=== PATIENT | female | born 1960 | race Caucasian/White ===

== ENCOUNTER 2024-04-12 18:48 | Inpatient (IN) ==
[2024-04-12] MEDS: fentaNYL 100 mcg/2 ml 50 MCG/ML VIAL IV SLOW PU ONE (19:30)
[2024-04-12 20:22] LABS: ABS Basophils 0.1 10^3/uL (0.0-0.1); ABS Eosinophils 0.1 10^3/uL (0.0-0.5); ABS Lymphocytes 1.4 10^3/uL (1.0-4.8); ABS Monocytes 0.6 10^3/uL (0.0-0.9); ABS Neutrophils 11.6 10^3/uL (1.5-7.6); Eosinophil % 0.4 %; Hematocrit 39.7 % (35-45); Hemoglobin 13.5 g/dL (11.5-14.3); Mean Corpuscular Hemoglobin 29.3 pg (27-33); Mean Corpuscular Volume 86.4 fL (80-97); Mean Platelet Volume 8.7 fL (7.5-11.2); Platelet Count 271 10^3/uL (150-450); Red Blood Count 4.59 10^6/uL (3.63-4.92); Red Cell Distribution Width 14.1 % (12-17); White Blood Count 13.7 10^3/uL (3.8-11.8)
[2024-04-12 20:46] LABS: ALT 32 U/L (7-52); AST 30 U/L (13-39); Albumin 4.3 g/dL (3.2-5.2); Albumin/Globulin Ratio 1.6 (1-3); Alkaline Phosphatase 120 U/L (35-149); Anion Gap 14 mmol/L (2-16); Blood Urea Nitrogen 19 mg/dL (6-24); C Reactive Protein 18.37 mg/L (<8.01); CO2 Carbon Dioxide 25 mmol/L (22-32); Calcium 9.6 mg/dL (8.6-10.3); Chloride 101 mmol/L (101-111); Creatinine, Serum 1.12 mg/dL (0.51-0.95); Globulin 2.7 g/dL (2-4); Glucose 226 mg/dL (70-100); Lipase < 10 U/L (11.0-82.0); Potassium 4.2 mmol/L (3.5-5.0); Sodium 140 mmol/L (135-145); Total Bilirubin 0.6 mg/dL (0.2-1.0); eGFR CKD-EPI 55.3 (>60)
[2024-04-12] MEDS: Iodixanol (CONTRAST) 320 MG/ML 100 ML SDV IV ONE (21:55)
[2024-04-12] MEDS: Morphine 4 MG/ML VIAL (1 ml) IV ONE (23:03)
[2024-04-12] MEDS ORDERED: Propofol 10 MG/ML 20 ML BTL ONE (23:40)
[2024-04-12] MEDS ORDERED: Lidocaine 2% PF 5 ML VIAL ONE (23:40)
[2024-04-12] MEDS ORDERED: Dexamethasone IV 4 MG/ML VIAL 1 ml VIAL ONE (23:40)
[2024-04-12] MEDS ORDERED: Ondansetron 4 mg VIAL 2 MG/ML 2 ml VIAL ONE (23:40)
[2024-04-12] MEDS ORDERED: fentaNYL 100 mcg/2 ml 50 MCG/ML VIAL ONE (23:41)
[2024-04-12] MEDS ORDERED: Phenylephrine 40 mcg/mL 10mL (400mcg) SYRINGE ONE (23:41)
[2024-04-12] MEDS ORDERED: Midazolam 2 mg/2 ml VIAL 1 mg/ml 2 ml VIAL (2 mg) ONE (23:41)
[2024-04-12] MEDS ORDERED: Rocuronium 50 mg VIAL 10 mg/ml 5 ml VIAL (50 mg) ONE (23:41)
[2024-04-13] MEDS: Piperacillin/Tazobac 3.375 BAG 3.375 GM/100 ML BAG IV ONE
[2024-04-13] MEDS ORDERED: Naloxone 0.4 mg VIAL 0.4 mg/ml 1 ml VIAL IV PRN (00:05)
[2024-04-13] MEDS ORDERED: Ondansetron 4 mg VIAL 2 MG/ML 2 ml VIAL IV PRN (00:05)
[2024-04-13] MEDS ORDERED: fentaNYL 100 mcg/2 ml 50 MCG/ML VIAL IV PRN (00:05)
[2024-04-13] MEDS ORDERED: Scopolamine 1 mg/72hr PATCH TRANSDERM ONE (00:05)
[2024-04-13] MEDS ORDERED: Famotidine IV 10 MG/ML 2 ml VIAL (20 mg) ONE (00:20)
[2024-04-13] MEDS ORDERED: Heparin 5000 UNITS/ML 1 mL VIAL ONE (00:26)
[2024-04-13] MEDS ORDERED: NS 0.45% 1000 ml BAG 1,000 ML IV SCH (01:00)
[2024-04-13] MEDS ORDERED: Acetaminophen IV 1 GM/100ML 1,000 MG/100 ML BAG IV ONE (01:06)
[2024-04-13] MEDS ORDERED: Rocuronium 50 mg VIAL 10 mg/ml 5 ml VIAL (50 mg) ONE (01:21)
[2024-04-13] MEDS ORDERED: HYDROmorphone 0.5 MG/0.5 ML SYRINGE ONE (02:32)
[2024-04-13] MEDS ORDERED: hydrALAZINE 20 mg/ml 1 ML Vial IV ONE (02:49)
[2024-04-13] MEDS: HYDROmorphone 1 MG/1 ML SYRINGE IV SLOW PU PRN (04:10)
[2024-04-13] MEDS: Lactated Ringers 1000 ml BAG 1,000 ML IV SCH ×2 (04:13→08:12)
[2024-04-13 05:21] LABS: Activated Partial Thrombo Time 25.9 seconds (26.0-38.0); INR 1.04 (0.83-1.13)
[2024-04-13 05:33] LABS: Creatinine, Serum 0.97 mg/dL (0.51-0.95); eGFR CKD-EPI 65.7 (>60)
[2024-04-13 05:43] LABS: ABS Lymphocytes 0.7 10^3/uL (1.0-4.8); ABS Monocytes 0.4 10^3/uL (0.0-0.9); ABS Neutrophils 11.8 10^3/uL (1.5-7.6); ABS Nucleated RBC 0.03 10^3/ul; Hematocrit 37.9 % (35-45); Hemoglobin 12.7 g/dL (11.5-14.3); Lymphocyte % 5.1 %; Mean Corpuscular Hemoglobin 29.3 pg (27-33); Mean Corpuscular Hgb Conc 33.6 g/dL (31-36); Mean Corpuscular Volume 87.3 fL (80-97); Mean Platelet Volume 8.7 fL (7.5-11.2); Nucleated Red Blood Cells % 0.2 %/100WBC (0.0-0.8); Platelet Count 231 10^3/uL (150-450); Red Blood Count 4.35 10^6/uL (3.63-4.92); Red Cell Distribution Width 14.6 % (12-17); White Blood Count 12.8 10^3/uL (3.8-11.8)
[2024-04-13] MEDS: Heparin 5000 UNITS/ML 1 mL VIAL SUBCUT SCH (07:28)
[2024-04-13] MEDS: Acetaminophen IV 1 GM/100ML 1,000 MG/100 ML BAG IV ONE (08:11)
[2024-04-13] MEDS: Ondansetron 4 mg VIAL 2 MG/ML 2 ml VIAL IV ONE (08:11)
[2024-04-13] MEDS: Buffered Lidocaine 1% SYRIN 1 ml INTRADERM ONE (08:12)
[2024-04-13 12:33] LABS: HIV 4th Generation Nonreactive (Nonreactive)
[2024-04-13 12:41] LABS: Hepatitis C Antibody Negative (Negative)
[2024-04-13] MEDS ORDERED: Albuterol HFA INHALER 8 gm MDI INH PRN (13:38)
[2024-04-13] MEDS ORDERED: Dextrose 50% Syringe 50 ml 25 GM/50 ML SYRINGE IV PUSH PRN (13:39)
[2024-04-13] MEDS: Acetaminophen IV 1 GM/100ML 1,000 MG/100 ML BAG IV PRN (14:00)
[2024-04-13 14:24] LABS: TSH Ultra Thyroid Stim Horm 0.64 mcIU/mL (0.34-5.60)
[2024-04-13 14:29] LABS: Free T4 1.16 ng/dL (0.61-1.12)
[2024-04-13] MEDS: COVID VAC 23-24(12+)(Moderna) SYR 0.5 ML IM ONE (15:01)
[2024-04-14] MEDS ORDERED: HYDROmorphone 1 MG/1 ML SYRINGE IV SLOW PU PRN (10:45)
[2024-04-14] MEDS: Lactated Ringers 1000 ml BAG 1,000 ML IV SCH (11:47)
[2024-04-14 12:23] LABS: Calcium 8.2 mg/dL (8.6-10.3); Creatinine, Serum 0.91 mg/dL (0.51-0.95); Potassium 4.1 mmol/L (3.5-5.0); eGFR CKD-EPI 70.9 (>60)
[2024-04-14 21:14] LABS: Folate 9.77 ng/mL (5.90-24.80)
[2024-04-14 23:45] LABS: ABS Basophils 0.1 10^3/uL (0.0-0.1); ABS Eosinophils 0.1 10^3/uL (0.0-0.5); ABS Lymphocytes 1.1 10^3/uL (1.0-4.8); ABS Monocytes 0.7 10^3/uL (0.0-0.9); ABS Neutrophils 5.8 10^3/uL (1.5-7.6); Eosinophil % 0.9 %; Hematocrit 31.8 % (35-45); Hemoglobin 10.7 g/dL (11.5-14.3); Lymphocyte % 14.3 %; Mean Corpuscular Hemoglobin 29.4 pg (27-33); Mean Corpuscular Hgb Conc 33.6 g/dL (31-36); Mean Corpuscular Volume 87.5 fL (80-97); Mean Platelet Volume 8.1 fL (7.5-11.2); Nucleated Red Blood Cells % 0.1 %/100WBC (0.0-0.8); Platelet Count 207 10^3/uL (150-450); Red Blood Count 3.64 10^6/uL (3.63-4.92); Red Cell Distribution Width 14.2 % (12-17); White Blood Count 7.6 10^3/uL (3.8-11.8)
[2024-04-15 08:33] LABS: ABS Basophils 0.1 10^3/uL (0.0-0.1); ABS Eosinophils 0.1 10^3/uL (0.0-0.5); ABS Lymphocytes 0.9 10^3/uL (1.0-4.8); ABS Monocytes 0.7 10^3/uL (0.0-0.9); ABS Neutrophils 6.5 10^3/uL (1.5-7.6); Eosinophil % 1.2 %; Hematocrit 30.7 % (35-45); Hemoglobin 10.8 g/dL (11.5-14.3); Lymphocyte % 10.7 %; Mean Corpuscular Hemoglobin 30.8 pg (27-33); Mean Corpuscular Hgb Conc 35.1 g/dL (31-36); Mean Corpuscular Volume 87.8 fL (80-97); Mean Platelet Volume 8.2 fL (7.5-11.2); Platelet Count 200 10^3/uL (150-450); Red Cell Distribution Width 14.1 % (12-17); White Blood Count 8.2 10^3/uL (3.8-11.8)
[2024-04-15] MEDS ORDERED: KCL 20 MEQ/100 ML IVPREMIX 20 MEQ/100 ML BAG IV ONE (08:55)
[2024-04-15 09:08] LABS: Calcium 8.2 mg/dL (8.6-10.3); Creatinine, Serum 0.99 mg/dL (0.51-0.95); Magnesium 1.5 mg/dL (1.9-2.7); Potassium 3.5 mmol/L (3.5-5.0); eGFR CKD-EPI 64.1 (>60)
[2024-04-15] MEDS: Ondansetron 4 mg VIAL 2 MG/ML 2 ml VIAL IV PRN (10:06)
[2024-04-16 07:30] LABS: ABS Eosinophils 0.3 10^3/uL (0.0-0.5); ABS Lymphocytes 1.2 10^3/uL (1.0-4.8); ABS Monocytes 0.6 10^3/uL (0.0-0.9); ABS Neutrophils 6.8 10^3/uL (1.5-7.6); Eosinophil % 2.9 %; Hematocrit 29.7 % (35-45); Hemoglobin 10.4 g/dL (11.5-14.3); Mean Corpuscular Hemoglobin 30.5 pg (27-33); Mean Corpuscular Hgb Conc 34.8 g/dL (31-36); Mean Corpuscular Volume 87.6 fL (80-97); Mean Platelet Volume 8.1 fL (7.5-11.2); Platelet Count 196 10^3/uL (150-450); Red Blood Count 3.39 10^6/uL (3.63-4.92); White Blood Count 8.8 10^3/uL (3.8-11.8)
[2024-04-16 08:09] LABS: Creatinine, Serum 0.92 mg/dL (0.51-0.95); Potassium 3.5 mmol/L (3.5-5.0)
[2024-04-16 08:30] LABS: Magnesium 1.5 mg/dL (1.9-2.7)
[2024-04-16] MEDS: Magnesium Sulfate 2 gm BAG 2 GM/50 ML BAG IVPB ONE ×2 (12:00→13:50)
[2024-04-18 07:06] LABS: Calcium 8.4 mg/dL (8.6-10.3); Creatinine, Serum 0.86 mg/dL (0.51-0.95); Magnesium 1.5 mg/dL (1.9-2.7); Potassium 3.5 mmol/L (3.5-5.0); eGFR CKD-EPI 75.9 (>60)
[2024-04-18] MEDS: Magnesium Sulf 4 GM/100 ML IV 4,000 MG/100 ML BAG IVPB ONE (10:13)
[2024-04-18 14:32] VITALS: BP 134/78
== END 2024-04-18 16:00 | disposition home or self-care (01) | DRG 221 ==
LOC: ED 18:48 → EDHOLD 18:48 → OBSVTOIN 23:53 → SSU 04-13 00:33
PROVIDERS: ADMIT Surgery; ATTEND Surgery

== ENCOUNTER 2024-05-22 05:40 | Inpatient (IN) ==
[2024-05-22] MEDS: Acetaminophen IV 1 GM/100ML 1,000 MG/100 ML BAG IV ONE (06:30)
[2024-05-22] MEDS: NS 0.9% 1000 ml BAG 1,000 ML IV ONE (06:30)
[2024-05-22 06:41] LABS: ABS Basophils 0.1 10^3/uL (0.0-0.1); ABS Lymphocytes 0.7 10^3/uL (1.0-4.8); ABS Monocytes 0.4 10^3/uL (0.0-0.9); ABS Neutrophils 7.6 10^3/uL (1.5-7.6); Eosinophil % 0.1 %; Hematocrit 31.7 % (35-45); Hemoglobin 10.9 g/dL (11.5-14.3); Lymphocyte % 8.3 %; Mean Corpuscular Hemoglobin 29.6 pg (27-33); Mean Corpuscular Hgb Conc 34.4 g/dL (31-36); Mean Corpuscular Volume 86.1 fL (80-97); Mean Platelet Volume 8.3 fL (7.5-11.2); Platelet Count 286 10^3/uL (150-450); Red Blood Count 3.69 10^6/uL (3.63-4.92); White Blood Count 8.8 10^3/uL (3.8-11.8)
[2024-05-22 07:29] LABS: ALT 78 U/L (7-52); AST 133 U/L (13-39); Albumin 3.6 g/dL (3.2-5.2); Albumin/Globulin Ratio 1.2 (1-3); Alkaline Phosphatase 185 U/L (35-149); Anion Gap 14 mmol/L (2-16); Blood Urea Nitrogen 19 mg/dL (6-24); CO2 Carbon Dioxide 26 mmol/L (22-32); Calcium 9.1 mg/dL (8.6-10.3); Chloride 102 mmol/L (101-111); Creatinine, Serum 0.91 mg/dL (0.51-0.95); Globulin 2.9 g/dL (2-4); Glucose 193 mg/dL (70-100); Lipase < 10 U/L (11.0-82.0); Magnesium 1.3 mg/dL (1.9-2.7); Potassium 3.6 mmol/L (3.5-5.0); Sodium 142 mmol/L (135-145); Total Bilirubin 0.7 mg/dL (0.2-1.0); Total Protein 6.5 g/dL (6.4-8.9); eGFR CKD-EPI 70.9 (>60)
[2024-05-22] MEDS: Iohexol 300 (CONTRAST) 10 ML SDV IV ONE (08:57)
[2024-05-22 12:16] LABS: Urine Appearance Clear; Urine Bacteria 1+ /HPF (Absent); Urine Bilirubin Negative (Negative); Urine Blood Negative (Negative); Urine Color Yellow; Urine Glucose Negative (Negative); Urine Ketones Negative (Negative); Urine Nitrite Negative (Negative); Urine Protein 1+ (>=30 mg/dL) (Negative); Urine Red Blood Cell 1+(3-5/hpf) /HPF (0-Trace); Urine Specific Gravity >1.050 (1.002-1.030); Urine Squamous Epithelial Cell Present /HPF (Absent); Urine Urobilinogen 2+ (Negative); Urine White Blood Cell 1+(6-10/hpf) /HPF (0-Trace)
[2024-05-22] MEDS: Magnesium Sulfate 2 gm BAG 2 GM/50 ML BAG IVPB ONE (12:24)
[2024-05-22] MEDS: Ondansetron 4 mg VIAL 2 MG/ML 2 ml VIAL IV ONE (12:25)
[2024-05-22] MEDS ORDERED: Ondansetron 4 mg VIAL 2 MG/ML 2 ml VIAL IV PRN (12:44)
[2024-05-22] MEDS: Diatrizoate Meg/Sod(CONTRAST) 30 ML ORAL.SOLN PO ONE (16:13)
[2024-05-22] MEDS: NS 0.9% 1000 ml BAG 1,000 ML IV SCH (16:39)
[2024-05-22 20:16] LABS: Hepatitis B Surface Antigen Nonreactive (Nonreactive)
[2024-05-22 20:33] LABS: Hepatitis B Surface Ab Not Immune (Immune)
[2024-05-23] MEDS: HYDROmorphone 0.5 MG/0.5 ML SYRINGE IV SLOW PU PRN (01:53)
[2024-05-23 05:37] LABS: ABS Eosinophils 0.2 10^3/uL (0.0-0.5); ABS Lymphocytes 1.3 10^3/uL (1.0-4.8); ABS Monocytes 0.4 10^3/uL (0.0-0.9); Eosinophil % 3.5 %; Hematocrit 29.2 % (35-45); Hemoglobin 9.8 g/dL (11.5-14.3); Lymphocyte % 26.3 %; Mean Corpuscular Hemoglobin 29.2 pg (27-33); Mean Corpuscular Hgb Conc 33.5 g/dL (31-36); Mean Platelet Volume 8.2 fL (7.5-11.2); Platelet Count 235 10^3/uL (150-450); Red Blood Count 3.36 10^6/uL (3.63-4.92); White Blood Count 4.8 10^3/uL (3.8-11.8)
[2024-05-23 06:03] LABS: Albumin 3.1 g/dL (3.2-5.2); Albumin/Globulin Ratio 1.2 (1-3); Calcium 8.2 mg/dL (8.6-10.3); Creatinine, Serum 0.81 mg/dL (0.51-0.95); Globulin 2.5 g/dL (2-4); Potassium 3.7 mmol/L (3.5-5.0); Total Bilirubin 0.4 mg/dL (0.2-1.0); Total Protein 5.6 g/dL (6.4-8.9); eGFR CKD-EPI 81.5 (>60)
[2024-05-23] MEDS: Pantoprazole VIAL 40 MG VIAL IV SCH (10:25)
[2024-05-23] MEDS: Acetaminophen IV 1 GM/100ML 1,000 MG/100 ML BAG IV PRN (10:33)
[2024-05-23 14:51] LABS: Magnesium 1.8 mg/dL (1.9-2.7)
[2024-05-23 15:02] LABS: TSH Ultra Thyroid Stim Horm 0.19 mcIU/mL (0.34-5.60)
[2024-05-23] MEDS: Magnesium Sulfate 2 gm BAG 2 GM/50 ML BAG IVPB ONE (15:20)
[2024-05-23 19:11] LABS: T4, Total 9.67 mcg/dL (6.09-12.23)
[2024-05-24 06:01] LABS: Hematocrit 28.3 % (35-45); Hemoglobin 9.9 g/dL (11.5-14.3); Mean Corpuscular Hemoglobin 30.1 pg (27-33); Mean Corpuscular Hgb Conc 34.8 g/dL (31-36); Mean Corpuscular Volume 86.4 fL (80-97); Mean Platelet Volume 8.4 fL (7.5-11.2); Platelet Count 239 10^3/uL (150-450); Red Blood Count 3.28 10^6/uL (3.63-4.92); Red Cell Distribution Width 14.5 % (12-17); White Blood Count 4.7 10^3/uL (3.8-11.8)
[2024-05-24 06:25] LABS: Calcium 8.3 mg/dL (8.6-10.3); Creatinine, Serum 0.76 mg/dL (0.51-0.95); Magnesium 1.8 mg/dL (1.9-2.7); Phosphorus 3.6 mg/dL (2.5-5.0); Potassium 3.2 mmol/L (3.5-5.0)
[2024-05-24] MEDS: Magnesium Sulfate 2 gm BAG 2 GM/50 ML BAG IVPB ONE (08:10)
[2024-05-24] MEDS: Enoxaparin 40 MG/0.4 ML SYR SUBCUT SCH (08:11)
[2024-05-24] MEDS: Potassium Chlor 20 meq TAB.ER PO ONE ×2 (08:13→14:12)
[2024-05-24 12:24] LABS: Calcium 8.9 mg/dL (8.6-10.3); Creatinine, Serum 0.84 mg/dL (0.51-0.95); Magnesium 2.2 mg/dL (1.9-2.7); Potassium 3.5 mmol/L (3.5-5.0)
[2024-05-24 14:18] LABS: Immunoglobulin G 1150 mg/dL (767 - 1590)
[2024-05-24] MEDS: Cholestyramine Resin 4 GM POWDER PO SCH (21:21)
[2024-05-25 06:52] LABS: Hematocrit 29.7 % (35-45); Hemoglobin 10.3 g/dL (11.5-14.3); Mean Corpuscular Hemoglobin 29.9 pg (27-33); Mean Corpuscular Hgb Conc 34.6 g/dL (31-36); Mean Corpuscular Volume 86.4 fL (80-97); Mean Platelet Volume 8.4 fL (7.5-11.2); Platelet Count 276 10^3/uL (150-450); Red Blood Count 3.44 10^6/uL (3.63-4.92); Red Cell Distribution Width 14.8 % (12-17); White Blood Count 6.1 10^3/uL (3.8-11.8)
[2024-05-25 08:02] LABS: Calcium 8.8 mg/dL (8.6-10.3); Creatinine, Serum 0.94 mg/dL (0.51-0.95); Magnesium 1.8 mg/dL (1.9-2.7); Phosphorus 3.7 mg/dL (2.5-5.0); eGFR CKD-EPI 68.2 (>60)
[2024-05-25] MEDS: Magnesium Sulfate 2 gm BAG 2 GM/50 ML BAG IVPB ONE (10:56)
[2024-05-25 19:03] VITALS: BP 134/82
== END 2024-05-25 19:55 | disposition home or self-care (01) | DRG 247 ==
LOC: ED 05:40 → SUATTDRO 12:29 → EDHOLD 12:29 → MEDTELE 18:27 → MED 05-24 18:33
PROVIDERS: ADMIT Hospitalist; ATTEND Hospitalist

== ENCOUNTER 2024-06-03 14:59 | Inpatient (IN) ==
[2024-06-03] MEDS: Ondansetron 4 mg VIAL 2 MG/ML 2 ml VIAL IV ONE (15:52)
[2024-06-03] MEDS: Morphine 4 MG/ML VIAL (1 ml) IV ONE (15:52)
[2024-06-03 16:03] LABS: ABS Basophils 0.1 10^3/uL (0.0-0.1); ABS Lymphocytes 1.1 10^3/uL (1.0-4.8); ABS Monocytes 0.6 10^3/uL (0.0-0.9); ABS Neutrophils 12.7 10^3/uL (1.5-7.6); ABS Nucleated RBC 0.01 10^3/ul; Eosinophil % 0.2 %; Hematocrit 36.6 % (35-45); Lymphocyte % 7.6 %; Mean Corpuscular Hemoglobin 28.5 pg (27-33); Mean Corpuscular Hgb Conc 32.9 g/dL (31-36); Mean Corpuscular Volume 86.5 fL (80-97); Mean Platelet Volume 8.3 fL (7.5-11.2); Nucleated Red Blood Cells % 0.1 %/100WBC (0.0-0.8); Platelet Count 356 10^3/uL (150-450); Red Blood Count 4.23 10^6/uL (3.63-4.92); White Blood Count 14.5 10^3/uL (3.8-11.8)
[2024-06-03 16:28] LABS: Albumin 4.2 g/dL (3.2-5.2); Albumin/Globulin Ratio 1.4 (1-3); Creatinine, Serum 0.95 mg/dL (0.51-0.95); Globulin 2.9 g/dL (2-4); Potassium 4.4 mmol/L (3.5-5.0); Total Bilirubin 0.6 mg/dL (0.2-1.0); Total Protein 7.1 g/dL (6.4-8.9); eGFR CKD-EPI 67.3 (>60)
[2024-06-03] MEDS: Lactated Ringers 1000 ml BAG 1,000 ML IV ONE ×2 (16:51→23:35)
[2024-06-03] MEDS: Iohexol 350 (CONTRAST) 500 ML MDV IV ONE (17:37)
[2024-06-03] MEDS: HYDROmorphone 0.5 MG/0.5 ML SYRINGE IV ONE ×2 (18:24→22:02)
[2024-06-03 21:11] LABS: C Reactive Protein 13.21 mg/L (<8.01)
[2024-06-03] MEDS ORDERED: Ondansetron 4 mg VIAL 2 MG/ML 2 ml VIAL IV PRN (21:51)
[2024-06-03] MEDS ORDERED: NON FORMULARY MED (Acetaminophen 500 mg Tablet) PO PRN (21:52)
[2024-06-03] MEDS ORDERED: ACETAMINOPHEN 1000 MG PO SCH (22:00)
[2024-06-03] MEDS: Acetaminophen IV 1 GM/100ML 1,000 MG/100 ML BAG IV SCH (23:39)
[2024-06-03] MEDS: Enoxaparin 40 MG/0.4 ML SYR SUBCUT SCH (23:41)
[2024-06-04] MEDS: HYDROmorphone 0.5 MG/0.5 ML SYRINGE IV PRN (05:42)
[2024-06-04 05:43] LABS: ABS Eosinophils 0.1 10^3/uL (0.0-0.5); ABS Monocytes 0.6 10^3/uL (0.0-0.9); ABS Nucleated RBC 0.01 10^3/ul; Hematocrit 33.7 % (35-45); Hemoglobin 11.5 g/dL (11.5-14.3); Lymphocyte % 25.4 %; Mean Corpuscular Hemoglobin 29.6 pg (27-33); Mean Corpuscular Hgb Conc 34.3 g/dL (31-36); Mean Corpuscular Volume 86.2 fL (80-97); Mean Platelet Volume 8.1 fL (7.5-11.2); Nucleated Red Blood Cells % 0.1 %/100WBC (0.0-0.8); Platelet Count 334 10^3/uL (150-450); Red Cell Distribution Width 14.7 % (12-17); White Blood Count 7.8 10^3/uL (3.8-11.8)
[2024-06-04 06:45] LABS: Albumin 3.8 g/dL (3.2-5.2); Albumin/Globulin Ratio 1.4 (1-3); Calcium 9.5 mg/dL (8.6-10.3); Creatinine, Serum 0.89 mg/dL (0.51-0.95); Globulin 2.8 g/dL (2-4); Magnesium 1.5 mg/dL (1.9-2.7); Potassium 4.1 mmol/L (3.5-5.0); Total Protein 6.6 g/dL (6.4-8.9); eGFR CKD-EPI 72.8 (>60)
[2024-06-04] MEDS: Magnesium Sulf 4 GM/100 ML IV 4,000 MG/100 ML BAG IVPB ONE (08:56)
[2024-06-04] MEDS: Lactated Ringers 1000 ml BAG 1,000 ML IV SCH (15:26)
[2024-06-04] MEDS: Magnesium Sulfate 2 gm BAG 2 GM/50 ML BAG IVPB ONE (20:35)
[2024-06-05 05:50] LABS: ABS Eosinophils 0.2 10^3/uL (0.0-0.5); ABS Lymphocytes 1.2 10^3/uL (1.0-4.8); ABS Monocytes 0.4 10^3/uL (0.0-0.9); ABS Neutrophils 3.4 10^3/uL (1.5-7.6); Eosinophil % 3.1 %; Hematocrit 29.2 % (35-45); Hemoglobin 10.1 g/dL (11.5-14.3); Lymphocyte % 23.5 %; Mean Corpuscular Hemoglobin 29.8 pg (27-33); Mean Corpuscular Hgb Conc 34.6 g/dL (31-36); Mean Corpuscular Volume 86.2 fL (80-97); Mean Platelet Volume 8.1 fL (7.5-11.2); Nucleated Red Blood Cells % 0.1 %/100WBC (0.0-0.8); Platelet Count 247 10^3/uL (150-450); Red Blood Count 3.39 10^6/uL (3.63-4.92); Red Cell Distribution Width 15.1 % (12-17); White Blood Count 5.2 10^3/uL (3.8-11.8)
[2024-06-05 06:16] LABS: Albumin 3.4 g/dL (3.2-5.2); Albumin/Globulin Ratio 1.5 (1-3); Calcium 8.5 mg/dL (8.6-10.3); Creatinine, Serum 0.78 mg/dL (0.51-0.95); Globulin 2.3 g/dL (2-4); Potassium 3.3 mmol/L (3.5-5.0); Total Bilirubin 0.5 mg/dL (0.2-1.0); Total Protein 5.7 g/dL (6.4-8.9); eGFR CKD-EPI 85.3 (>60)
[2024-06-05] MEDS: KCL 20 MEQ/100 ML IVPREMIX 20 MEQ/100 ML BAG IV ONE (08:41)
[2024-06-06 05:53] LABS: ABS Basophils 0.1 10^3/uL (0.0-0.1); ABS Eosinophils 0.1 10^3/uL (0.0-0.5); ABS Lymphocytes 1.1 10^3/uL (1.0-4.8); ABS Monocytes 0.3 10^3/uL (0.0-0.9); ABS Neutrophils 3.7 10^3/uL (1.5-7.6); Eosinophil % 2.2 %; Hematocrit 29.9 % (35-45); Hemoglobin 10.2 g/dL (11.5-14.3); Lymphocyte % 20.8 %; Mean Corpuscular Hemoglobin 29.4 pg (27-33); Mean Corpuscular Hgb Conc 34.1 g/dL (31-36); Mean Corpuscular Volume 86.2 fL (80-97); Mean Platelet Volume 8.1 fL (7.5-11.2); Nucleated Red Blood Cells % 0.1 %/100WBC (0.0-0.8); Platelet Count 259 10^3/uL (150-450); Red Blood Count 3.46 10^6/uL (3.63-4.92); Red Cell Distribution Width 14.4 % (12-17); White Blood Count 5.3 10^3/uL (3.8-11.8)
[2024-06-06 06:49] LABS: Calcium 8.6 mg/dL (8.6-10.3); Creatinine, Serum 0.66 mg/dL (0.51-0.95); Potassium 3.2 mmol/L (3.5-5.0); eGFR CKD-EPI 98.5 (>60)
[2024-06-06] MEDS: KCL 20 MEQ/100 ML IVPREMIX 20 MEQ/100 ML BAG IV SCH (08:30)
[2024-06-06] MEDS: Lactated Ringers 1000 ml BAG 1,000 ML IV SCH (08:30)
[2024-06-06 08:34] LABS: Magnesium 1.5 mg/dL (1.9-2.7)
[2024-06-07 07:30] LABS: Albumin 3.5 g/dL (3.2-5.2); Albumin/Globulin Ratio 1.3 (1-3); Creatinine, Serum 0.93 mg/dL (0.51-0.95); Globulin 2.6 g/dL (2-4); Potassium 3.4 mmol/L (3.5-5.0); Total Bilirubin 0.4 mg/dL (0.2-1.0); Total Protein 6.1 g/dL (6.4-8.9); eGFR CKD-EPI 69.1 (>60)
[2024-06-07 07:52] LABS: Hematocrit 31.4 % (35-45); Hemoglobin 10.9 g/dL (11.5-14.3); Mean Corpuscular Hemoglobin 29.5 pg (27-33); Mean Corpuscular Hgb Conc 34.6 g/dL (31-36); Mean Corpuscular Volume 85.2 fL (80-97); Red Blood Count 3.69 10^6/uL (3.63-4.92); Red Cell Distribution Width 14.8 % (12-17); White Blood Count 7.2 10^3/uL (3.8-11.8)
[2024-06-07 08:14] LABS: ABS Basophils 0.1 10^3/uL (0.0-0.1); ABS Eosinophils 0.3 10^3/uL (0.0-0.5); ABS Monocytes 0.5 10^3/uL (0.0-0.9); ABS Neutrophils 4.3 10^3/uL (1.5-7.6); ABS Nucleated RBC 0.01 10^3/ul; Eosinophil % 3.5 %; Lymphocyte % 28.1 %; Nucleated Red Blood Cells % 0.1 %/100WBC (0.0-0.8); Platelet Count 274 10^3/uL (150-450)
[2024-06-07] MEDS: Potassium Chloride LIQUID 20 MEQ/15 ML LIQUID PO ONE (11:22)
[2024-06-07] MEDS ORDERED: Cholestyramine Resin 4 GM POWDER PO SCH (12:00)
[2024-06-07] MEDS: Cholestyramine Resin 4 GM POWDER PO SCH ×2 (12:14→21:55)
[2024-06-07 15:13] LABS: Magnesium 1.4 mg/dL (1.9-2.7)
[2024-06-07] MEDS: Magnesium Sulf 4 GM/100 ML IV 4,000 MG/100 ML BAG IVPB ONE (17:23)
[2024-06-08 06:46] LABS: Calcium 9.3 mg/dL (8.6-10.3); Creatinine, Serum 0.86 mg/dL (0.51-0.95); Potassium 3.8 mmol/L (3.5-5.0); eGFR CKD-EPI 75.9 (>60)
[2024-06-08 09:22] VITALS: BP 164/82
== END 2024-06-08 13:30 | disposition home or self-care (01) | DRG 247 ==
LOC: ED 14:59 → EDHOLD 14:59 → MEDTELE 23:20
PROVIDERS: ADMIT Hospitalist; ATTEND Internal Medicine

== ENCOUNTER 2024-06-08 14:10 | Inpatient (IN) ==
[2024-06-08] MEDS: NS 0.9% 1000 ml BAG 1,000 ML IV ONE ×2 (14:59→19:41)
[2024-06-08] MEDS: Ondansetron 4 mg VIAL 2 MG/ML 2 ml VIAL IV ONE (15:02)
[2024-06-08 15:17] LABS: ABS Eosinophils 0.1 10^3/uL (0.0-0.5); ABS Lymphocytes 1.3 10^3/uL (1.0-4.8); ABS Monocytes 0.4 10^3/uL (0.0-0.9); ABS Neutrophils 3.8 10^3/uL (1.5-7.6); Eosinophil % 2.3 %; Hematocrit 35.4 % (35-45); Hemoglobin 11.8 g/dL (11.5-14.3); Lymphocyte % 23.2 %; Mean Corpuscular Hemoglobin 28.7 pg (27-33); Mean Corpuscular Hgb Conc 33.2 g/dL (31-36); Mean Corpuscular Volume 86.3 fL (80-97); Mean Platelet Volume 8.1 fL (7.5-11.2); Nucleated Red Blood Cells % 0.1 %/100WBC (0.0-0.8); Platelet Count 355 10^3/uL (150-450); White Blood Count 5.6 10^3/uL (3.8-11.8)
[2024-06-08] MEDS: HYDROmorphone 0.5 MG/0.5 ML SYRINGE IV ONE ×3 (15:44→19:34)
[2024-06-08 16:52] LABS: Albumin 3.7 g/dL (3.2-5.2); Albumin/Globulin Ratio 1.4 (1-3); C Reactive Protein 8.75 mg/L (<8.01); Calcium 9.3 mg/dL (8.6-10.3); Creatinine, Serum 0.96 mg/dL (0.51-0.95); Globulin 2.7 g/dL (2-4); Magnesium 1.8 mg/dL (1.9-2.7); Potassium 4.1 mmol/L (3.5-5.0); Total Bilirubin 0.4 mg/dL (0.2-1.0); Total Protein 6.4 g/dL (6.4-8.9); eGFR CKD-EPI 66.5 (>60)
[2024-06-08] MEDS: Piperacillin/Tazobac 3.375 BAG 3.375 GM/100 ML BAG IV ONE (17:54)
[2024-06-08] MEDS: NS 0.9% 1000 ml BAG 1,000 ML IV SCH (18:43)
[2024-06-08] MEDS: metroNIDAZOLE IV 500 MG/100ML 500 MG/100 ML BAG IVPB ONE (19:41)
[2024-06-08] MEDS ORDERED: Ondansetron 4 mg VIAL 2 MG/ML 2 ml VIAL IV PRN (19:53)
[2024-06-08] MEDS ORDERED: Ondansetron 4 mg VIAL 2 MG/ML 2 ml VIAL ONE (19:58)
[2024-06-08] MEDS ORDERED: Phenylephrine 40 mcg/mL 10mL (400mcg) SYRINGE ONE (19:58)
[2024-06-08] MEDS ORDERED: Dexamethasone IV 4 MG/ML VIAL 1 ml VIAL ONE (19:58)
[2024-06-08] MEDS ORDERED: Lidocaine 2% PF 5 ML VIAL ONE (19:59)
[2024-06-08] MEDS ORDERED: Propofol 10 MG/ML 20 ML BTL ONE ×2 (19:59→20:19)
[2024-06-08] MEDS ORDERED: Rocuronium 50 mg VIAL 10 mg/ml 5 ml VIAL (50 mg) ONE ×2 (19:59→20:19)
[2024-06-08] MEDS ORDERED: Succinylcholine 200 mg VIAL 20 mg/ml 10 ml VIAL (200 mg) ONE ×2 (19:59→20:02)
[2024-06-08] MEDS ORDERED: fentaNYL 250 mcg/5 ml 50 MCG/ML 5 ml VIAL (250 MCG) ONE (20:03)
[2024-06-08] MEDS ORDERED: Midazolam 2 mg/2 ml VIAL 1 mg/ml 2 ml VIAL (2 mg) ONE (20:03)
[2024-06-08] MEDS ORDERED: Sodium Chloride 0.9% 10 ML ONE (20:05)
[2024-06-08] MEDS ORDERED: Sevoflurane BOTTLE ONE (20:10)
[2024-06-08] MEDS ORDERED: Famotidine IV 10 MG/ML 2 ml VIAL (20 mg) ONE (20:32)
[2024-06-08] MEDS ORDERED: Heparin 5000 UNITS/ML 1 mL VIAL ONE (20:38)
[2024-06-08] MEDS: Heparin 5000 UNITS/ML 1 mL VIAL SUBCUT ONE (20:40)
[2024-06-08] MEDS ORDERED: Acetaminophen IV 1 GM/100ML 1,000 MG/100 ML BAG IV ONE (21:18)
[2024-06-08] MEDS ORDERED: ceFAZolin 2 GM/50 ML DUPLEX BAG ONE (21:22)
[2024-06-08 21:46] LABS: Urine Bacteria Absent /HPF (Absent); Urine Red Blood Cell Trace(0-2/hpf) /HPF (0-Trace); Urine Squamous Epithelial Cell Present /HPF (Absent); Urine White Blood Cell Trace(0-5/hpf) /HPF (0-Trace)
[2024-06-08 21:47] LABS: Urine Appearance Clear; Urine Bilirubin Negative (Negative); Urine Blood Negative (Negative); Urine Color Light-Yellow; Urine Glucose Negative (Negative); Urine Ketones Negative (Negative); Urine Nitrite Negative (Negative); Urine Protein Trace (Negative); Urine Specific Gravity >1.050 (1.002-1.030); Urine Urobilinogen Negative (Negative)
[2024-06-09 00:04] LABS: PCO2 Arterial 41 mmHg (35-45); PO2 Arterial 172 mmHg (80-100)
[2024-06-09] MEDS ORDERED: fentaNYL 100 mcg/2 ml 50 MCG/ML VIAL ONE (00:23)
[2024-06-09] MEDS ORDERED: Dextrose 50% Syringe 50 ml 25 GM/50 ML SYRINGE IV PUSH PRN (00:57)
[2024-06-09] MEDS ORDERED: Acetaminophen IV 1 GM/100ML 1,000 MG/100 ML BAG IV PRN (00:59)
[2024-06-09] MEDS ORDERED: Zosyn per Pharmacy NOTE FOLLOW UP SCH (01:00)
[2024-06-09] MEDS: HYDROmorphone 1 MG/1 ML SYRINGE IV SLOW PU PRN (01:23)
[2024-06-09] MEDS: Lactated Ringers 1000 ml BAG 1,000 ML IV SCH ×2 (01:27→03:31)
[2024-06-09] MEDS: Piperacillin/Tazobac 3.375 BAG 3.375 GM/100 ML BAG IV ONE (02:13)
[2024-06-09] MEDS: Lactated Ringers 1000 ml BAG 1,000 ML IV ONE (03:29)
[2024-06-09] MEDS: Piperacillin/Tazobac 3.375 BAG 3.375 GM/100 ML BAG IV SCH (03:31)
[2024-06-09] MEDS: Norepinephrine 4 MG/250mL D5W 4,000 MCG/250 ML BAG IV SCH (03:59)
[2024-06-09] MEDS: Iohexol 300 (CONTRAST) 10 ML SDV IV ONE (04:23)
[2024-06-09] MEDS: Norepinephrine 4 MG/250mL D5W 4,000 MCG/250 ML BAG IV ONE (04:23)
[2024-06-09 05:26] LABS: PCO2 Arterial 37 mmHg (35-45); PO2 Arterial 71 mmHg (80-100)
[2024-06-09 05:32] LABS: ABS Lymphocytes 0.6 10^3/uL (1.0-4.8); ABS Monocytes 0.6 10^3/uL (0.0-0.9); ABS Neutrophils 11.1 10^3/uL (1.5-7.6); Hemoglobin 10.6 g/dL (11.5-14.3); Lymphocyte % 4.7 %; Mean Corpuscular Hemoglobin 29.3 pg (27-33); Mean Corpuscular Hgb Conc 33.2 g/dL (31-36); Mean Corpuscular Volume 88.2 fL (80-97); Platelet Count 338 10^3/uL (150-450); Red Blood Count 3.63 10^6/uL (3.63-4.92); Red Cell Distribution Width 15.5 % (12-17); White Blood Count 12.3 10^3/uL (3.8-11.8)
[2024-06-09] MEDS ORDERED: ZOSYN 3.375 GM Q8H per EXTENDED INFUSION IV SCH (06:00)
[2024-06-09 06:26] LABS: Albumin 2.6 g/dL (3.2-5.2); Albumin/Globulin Ratio 1.4 (1-3); C Reactive Protein 122.58 mg/L (<8.01); Calcium 7.5 mg/dL (8.6-10.3); Creatinine, Serum 1.34 mg/dL (0.51-0.95); Globulin 1.9 g/dL (2-4); Magnesium 1.2 mg/dL (1.9-2.7); Phosphorus 5.5 mg/dL (2.5-5.0); Potassium 4.6 mmol/L (3.5-5.0); Total Bilirubin 0.6 mg/dL (0.2-1.0); Total Protein 4.5 g/dL (6.4-8.9); eGFR CKD-EPI 44.6 (>60)
[2024-06-09] MEDS: ZOSYN 3.375 GM Q8H per EXTENDED INFUSION IV SCH (07:38)
[2024-06-09] MEDS: Acetaminophen IV 1 GM/100ML 1,000 MG/100 ML BAG IV SCH (07:38)
[2024-06-09] MEDS: Enoxaparin 40 MG/0.4 ML SYR SUBCUT SCH (07:38)
[2024-06-09] MEDS: Pantoprazole VIAL 40 MG VIAL IV SCH (07:38)
[2024-06-09] MEDS: Magnesium Sulf 4 GM/100 ML IV 4,000 MG/100 ML BAG IVPB ONE (09:56)
[2024-06-09 15:41] LABS: Calcium 8.1 mg/dL (8.6-10.3); Creatinine, Serum 1.3 mg/dL (0.51-0.95); Magnesium 2.2 mg/dL (1.9-2.7); Phosphorus 5.8 mg/dL (2.5-5.0); Potassium 4.7 mmol/L (3.5-5.0); eGFR CKD-EPI 46.2 (>60)
[2024-06-10 05:18] LABS: ABS Lymphocytes 0.9 10^3/uL (1.0-4.8); ABS Monocytes 0.5 10^3/uL (0.0-0.9); ABS Neutrophils 11.3 10^3/uL (1.5-7.6); Eosinophil % 0.1 %; Hematocrit 25.5 % (35-45); Hemoglobin 8.3 g/dL (11.5-14.3); Lymphocyte % 7.1 %; Mean Corpuscular Hemoglobin 28.7 pg (27-33); Mean Corpuscular Hgb Conc 32.6 g/dL (31-36); Mean Corpuscular Volume 87.9 fL (80-97); Mean Platelet Volume 7.9 fL (7.5-11.2); Platelet Count 236 10^3/uL (150-450); Red Cell Distribution Width 16.2 % (12-17); White Blood Count 12.9 10^3/uL (3.8-11.8)
[2024-06-10 06:07] LABS: Albumin 2.5 g/dL (3.2-5.2); Albumin/Globulin Ratio 1.4 (1-3); Creatinine, Serum 1.1 mg/dL (0.51-0.95); Globulin 1.8 g/dL (2-4); Magnesium 2.1 mg/dL (1.9-2.7); Phosphorus 4.9 mg/dL (2.5-5.0); Potassium 4.3 mmol/L (3.5-5.0); Total Bilirubin 0.5 mg/dL (0.2-1.0); Total Protein 4.3 g/dL (6.4-8.9); eGFR CKD-EPI 56.5 (>60)
[2024-06-10] MEDS: HYDROmorphone 0.5 MG/0.5 ML SYRINGE IV SLOW PU ONE (23:10)
[2024-06-11 06:31] LABS: ABS Eosinophils 0.3 10^3/uL (0.0-0.5); ABS Lymphocytes 1.3 10^3/uL (1.0-4.8); ABS Monocytes 0.5 10^3/uL (0.0-0.9); ABS Neutrophils 10.7 10^3/uL (1.5-7.6); Eosinophil % 2.1 %; Hematocrit 23.4 % (35-45); Hemoglobin 7.9 g/dL (11.5-14.3); Lymphocyte % 10.4 %; Mean Corpuscular Hemoglobin 29.6 pg (27-33); Mean Corpuscular Hgb Conc 33.7 g/dL (31-36); Mean Platelet Volume 8.4 fL (7.5-11.2); Platelet Count 222 10^3/uL (150-450); Red Blood Count 2.66 10^6/uL (3.63-4.92); Red Cell Distribution Width 16.4 % (12-17); White Blood Count 12.9 10^3/uL (3.8-11.8)
[2024-06-11 07:05] LABS: Albumin 2.4 g/dL (3.2-5.2); Albumin/Globulin Ratio 1.2 (1-3); Calcium 7.9 mg/dL (8.6-10.3); Phosphorus 3.5 mg/dL (2.5-5.0); Total Bilirubin 0.6 mg/dL (0.2-1.0); Total Protein 4.4 g/dL (6.4-8.9); eGFR CKD-EPI 63.3 (>60)
[2024-06-12] MEDS: Ondansetron 4 mg VIAL 2 MG/ML 2 ml VIAL IV PRN (02:35)
[2024-06-12 05:46] LABS: ABS Eosinophils 0.3 10^3/uL (0.0-0.5); ABS Lymphocytes 1.3 10^3/uL (1.0-4.8); ABS Monocytes 0.5 10^3/uL (0.0-0.9); ABS Neutrophils 6.7 10^3/uL (1.5-7.6); ABS Nucleated RBC 0.01 10^3/ul; Eosinophil % 3.9 %; Hematocrit 24.8 % (35-45); Hemoglobin 8.2 g/dL (11.5-14.3); Lymphocyte % 14.2 %; Mean Corpuscular Hemoglobin 29.1 pg (27-33); Mean Corpuscular Hgb Conc 32.8 g/dL (31-36); Mean Corpuscular Volume 88.6 fL (80-97); Mean Platelet Volume 8.3 fL (7.5-11.2); Nucleated Red Blood Cells % 0.1 %/100WBC (0.0-0.8); Platelet Count 266 10^3/uL (150-450); Red Cell Distribution Width 16.5 % (12-17); White Blood Count 8.8 10^3/uL (3.8-11.8)
[2024-06-12 06:05] LABS: Albumin 2.6 g/dL (3.2-5.2); Albumin/Globulin Ratio 1.2 (1-3); Calcium 7.8 mg/dL (8.6-10.3); Creatinine, Serum 0.94 mg/dL (0.51-0.95); Globulin 2.2 g/dL (2-4); Magnesium 1.8 mg/dL (1.9-2.7); Phosphorus 3.9 mg/dL (2.5-5.0); Potassium 3.8 mmol/L (3.5-5.0); Total Bilirubin 0.5 mg/dL (0.2-1.0); Total Protein 4.8 g/dL (6.4-8.9); eGFR CKD-EPI 68.2 (>60)
[2024-06-12] MEDS: HYDROmorphone 0.5 MG/0.5 ML SYRINGE IV SLOW PU PRN (18:08)
[2024-06-12 18:53] LABS: Hematocrit 25.3 % (35-45); Hemoglobin 8.4 g/dL (11.5-14.3); Mean Corpuscular Hemoglobin 29.2 pg (27-33); Mean Corpuscular Hgb Conc 33.2 g/dL (31-36); Mean Corpuscular Volume 87.8 fL (80-97); Mean Platelet Volume 7.7 fL (7.5-11.2); Platelet Count 276 10^3/uL (150-450); Red Blood Count 2.88 10^6/uL (3.63-4.92); Red Cell Distribution Width 15.9 % (12-17); White Blood Count 7.1 10^3/uL (3.8-11.8)
[2024-06-12 19:31] LABS: Calcium 7.7 mg/dL (8.6-10.3); Creatinine, Serum 0.94 mg/dL (0.51-0.95); Potassium 3.8 mmol/L (3.5-5.0); eGFR CKD-EPI 68.2 (>60)
[2024-06-12] MEDS: HYDROmorphone 1 MG/1 ML SYRINGE IV SLOW PU PRN (19:33)
[2024-06-12 19:40] LABS: ABS Eosinophils 0.3 10^3/uL (0.0-0.5); ABS Lymphocytes 1.2 10^3/uL (1.0-4.8); ABS Monocytes 0.7 10^3/uL (0.0-0.9); ABS Neutrophils 4.9 10^3/uL (1.5-7.6); ABS Nucleated RBC 0.01 10^3/ul; Eosinophil % 3.7 %; Nucleated Red Blood Cells % 0.1 %/100WBC (0.0-0.8)
[2024-06-12] MEDS: Iodixanol (CONTRAST) 320 MG/ML 100 ML SDV IV ONE (21:57)
[2024-06-13] MEDS ORDERED: Sodium Phosphate ADULT ENEMA 133 ML BTL PR PRN (13:30)
[2024-06-13] MEDS: Acetaminophen IV 1 GM/100ML 500 MG/50 ML BAG IV SCH (15:21)
[2024-06-13] MEDS ORDERED: Acetaminophen IV 1 GM/100ML 500 MG/50 ML BAG IV SCH ×2 (15:30)
[2024-06-13] MEDS: HYDROcodone/ACETAMIN 5/325 mg TAB PO PRN ×2 (16:48→22:30)
[2024-06-14 06:17] LABS: Hematocrit 26.1 % (35-45); Hemoglobin 8.4 g/dL (11.5-14.3); Mean Corpuscular Hemoglobin 28.2 pg (27-33); Mean Corpuscular Volume 87.9 fL (80-97); Mean Platelet Volume 8.2 fL (7.5-11.2); Platelet Count 318 10^3/uL (150-450); Red Blood Count 2.97 10^6/uL (3.63-4.92); Red Cell Distribution Width 15.7 % (12-17); White Blood Count 9.3 10^3/uL (3.8-11.8)
[2024-06-14 07:00] LABS: Albumin 2.6 g/dL (3.2-5.2); Calcium 7.9 mg/dL (8.6-10.3); Creatinine, Serum 0.9 mg/dL (0.51-0.95); Globulin 2.5 g/dL (2-4); Magnesium 1.5 mg/dL (1.9-2.7); Potassium 3.7 mmol/L (3.5-5.0); Total Bilirubin 0.3 mg/dL (0.2-1.0); Total Protein 5.1 g/dL (6.4-8.9); eGFR CKD-EPI 71.8 (>60)
[2024-06-14 07:35] LABS: ABS Eosinophils 0.2 10^3/uL (0.0-0.5); ABS Lymphocytes 1.5 10^3/uL (1.0-4.8); ABS Monocytes 0.9 10^3/uL (0.0-0.9); ABS Neutrophils 6.6 10^3/uL (1.5-7.6); ABS Nucleated RBC 0.02 10^3/ul; Eosinophil % 2.4 %; Nucleated Red Blood Cells % 0.2 %/100WBC (0.0-0.8)
[2024-06-14] MEDS ORDERED: KCL 10 MEQ/50 ML IVPREMIX 10 MEQ/50 ML BAG IV SCH (10:00)
[2024-06-14] MEDS: Magnesium Sulf 4 GM/100 ML IV 4,000 MG/100 ML BAG IVPB ONE ×2 (10:34→11:20)
[2024-06-14] MEDS: DULoxetine DR 30 mg CAP PO SCH (12:43)
[2024-06-14] MEDS: KCL 10 MEQ/50 ML IVPREMIX 10 MEQ/50 ML BAG IV SCH (15:44)
[2024-06-14] MEDS: Morphine ORAL.SOLN 10 mg 2 mg/ml UDC 5 ml (10 mg) PO PRN (17:06)
[2024-06-15 07:11] LABS: Hematocrit 25.4 % (35-45); Hemoglobin 8.6 g/dL (11.5-14.3); Mean Corpuscular Hemoglobin 29.4 pg (27-33); Mean Corpuscular Hgb Conc 33.9 g/dL (31-36); Mean Corpuscular Volume 86.8 fL (80-97); Mean Platelet Volume 7.6 fL (7.5-11.2); Platelet Count 341 10^3/uL (150-450); Red Blood Count 2.93 10^6/uL (3.63-4.92); Red Cell Distribution Width 15.5 % (12-17); White Blood Count 8.6 10^3/uL (3.8-11.8)
[2024-06-15 07:32] LABS: Creatinine, Serum 0.65 mg/dL (0.51-0.95); Magnesium 1.8 mg/dL (1.9-2.7); eGFR CKD-EPI 98.9 (>60)
[2024-06-15 08:05] LABS: ABS Eosinophils 0.2 10^3/uL (0.0-0.5); ABS Lymphocytes 1.2 10^3/uL (1.0-4.8); ABS Monocytes 0.8 10^3/uL (0.0-0.9); ABS Neutrophils 6.5 10^3/uL (1.5-7.6); ABS Nucleated RBC 0.01 10^3/ul; Eosinophil % 1.9 %; Lymphocyte % 13.8 %; Nucleated Red Blood Cells % 0.1 %/100WBC (0.0-0.8)
[2024-06-15] MEDS ORDERED: Morphine ORAL.SOLN 10 mg 2 mg/ml UDC 5 ml (10 mg) PO PRN (08:52)
[2024-06-18] MEDS: HYDROmorphone 0.5 MG/0.5 ML SYRINGE IV SLOW PU PRN (01:39)
[2024-06-18 07:30] LABS: ABS Eosinophils 0.2 10^3/uL (0.0-0.5); ABS Lymphocytes 1.4 10^3/uL (1.0-4.8); ABS Monocytes 0.6 10^3/uL (0.0-0.9); ABS Neutrophils 7.3 10^3/uL (1.5-7.6); ABS Nucleated RBC 0.01 10^3/ul; Hematocrit 28.5 % (35-45); Hemoglobin 9.6 g/dL (11.5-14.3); Lymphocyte % 14.4 %; Mean Corpuscular Hemoglobin 28.9 pg (27-33); Mean Corpuscular Hgb Conc 33.6 g/dL (31-36); Mean Corpuscular Volume 86.3 fL (80-97); Mean Platelet Volume 7.5 fL (7.5-11.2); Nucleated Red Blood Cells % 0.1 %/100WBC (0.0-0.8); Platelet Count 567 10^3/uL (150-450); Red Blood Count 3.31 10^6/uL (3.63-4.92); White Blood Count 9.4 10^3/uL (3.8-11.8)
[2024-06-18 07:58] LABS: Calcium 8.9 mg/dL (8.6-10.3); Creatinine, Serum 0.84 mg/dL (0.51-0.95); Magnesium 1.7 mg/dL (1.9-2.7); Potassium 4.6 mmol/L (3.5-5.0)
[2024-06-18 10:45] LABS: Rapid COVID-19 Molecular Undetected (Undetected)
[2024-06-19 10:03] VITALS: BP 136/70
== END 2024-06-19 14:07 | disposition swing bed (61) | DRG 710 ==
LOC: ED 14:10 → EDHOLD 20:13 → ICU 06-09 00:42 → SSU 06-11 10:33
PROVIDERS: ADMIT Student in an Organized Health Care Education/Training Program; ATTEND Surgery

== ENCOUNTER 2024-08-01 20:38 | Inpatient (IN) ==
[2024-08-01 21:36] LABS: ABS Basophils 0.2 10^3/uL (0.0-0.1); ABS Lymphocytes 1.3 10^3/uL (1.0-4.8); ABS Neutrophils 14.5 10^3/uL (1.5-7.6); ABS Nucleated RBC 0.01 10^3/ul; Eosinophil % 0.3 %; Hemoglobin 12.4 g/dL (11.5-14.3); Lymphocyte % 7.5 %; Mean Corpuscular Hemoglobin 27.2 pg (27-33); Mean Corpuscular Hgb Conc 32.7 g/dL (31-36); Mean Corpuscular Volume 82.9 fL (80-97); Mean Platelet Volume 8.4 fL (7.5-11.2); Platelet Count 449 10^3/uL (150-450); Red Blood Count 4.58 10^6/uL (3.63-4.92); Red Cell Distribution Width 16.6 % (12-17); White Blood Count 17.1 10^3/uL (3.8-11.8)
[2024-08-01 21:47] LABS: INR 1.07 (0.85-1.14)
[2024-08-01 22:00] LABS: High Sens Troponin Baseline 7 pg/mL (<15)
[2024-08-01 22:14] LABS: ALT 117 U/L (7-52); Albumin 4.5 g/dL (3.2-5.2); Albumin/Globulin Ratio 1.2 (1-3); Alkaline Phosphatase 399 U/L (35-149); Anion Gap 13 mmol/L (2-16); Blood Urea Nitrogen 55 mg/dL (6-24); CO2 Carbon Dioxide 24 mmol/L (22-32); Calcium 10.9 mg/dL (8.6-10.3); Chloride 90 mmol/L (101-111); Creatinine, Serum 2.41 mg/dL (0.51-0.95); Globulin 3.7 g/dL (2-4); Glucose 168 mg/dL (70-100); Sodium 127 mmol/L (135-145); Total Bilirubin 0.6 mg/dL (0.2-1.0); Total Protein 8.2 g/dL (6.4-8.9)
[2024-08-01] MEDS: Ondansetron 4 mg VIAL 2 MG/ML 2 ml VIAL IV ONE (22:14)
[2024-08-01] MEDS: Morphine 4 MG/ML VIAL (1 ml) IV ONE (22:52)
[2024-08-01 23:04] LABS: High Sensitivity Troponin 1 Hr 7 pg/mL (<15)
[2024-08-02 00:02] LABS: Potassium Redraw 5.9 mmol/L (3.5-5.0)
[2024-08-02] MEDS: Prochlorperazine 5 mg/ml 2 ml VIAL (10 mg) IV ONE (02:09)
[2024-08-02] MEDS: DICYCLOMINE HCL 10 MG/ML VIAL (20 MG) IM ONE (03:07)
[2024-08-02] MEDS: Lactated Ringers 1000 ml BAG 1,000 ML IV ONE (06:12)
[2024-08-02 07:03] LABS: Urine Appearance Extra Turbid; Urine Bilirubin 1+ (Negative); Urine Blood Trace (Negative); Urine Color Yellow; Urine Glucose Trace (Negative); Urine Ketones Negative (Negative); Urine Nitrite Negative (Negative); Urine Protein 2+ (>=100 mg/dL) (Negative); Urine Specific Gravity 1.019 (1.002-1.030); Urine Urobilinogen Negative (Negative); Urine pH 5.5 (5.0-8.0)
[2024-08-02 07:11] LABS: Budding Yeast Present /HPF (Absent); Urine Bacteria Absent /HPF (Absent); Urine Red Blood Cell 2+(6-10/hpf) /HPF (0-Trace); Urine Squamous Epithelial Cell Present /HPF (Absent); Urine Transitional Epithelial Present /HPF (Absent); Urine White Blood Cell 3+(>20/hpf) /HPF (0-Trace)
[2024-08-02] MEDS: cefTRIAXone 1 gm/50 mL D5W 1 GM/50 ML BAG IV ONE (07:53)
[2024-08-02] MEDS ORDERED: Ondansetron 4 mg VIAL 2 MG/ML 2 ml VIAL IV PRN (08:59)
[2024-08-02] MEDS: Heparin 5000 UNITS/ML 1 mL VIAL SUBCUT SCH (09:33)
[2024-08-02] MEDS: NS 0.9% 1000 ml BAG 1,000 ML IV ONE (09:34)
[2024-08-02] MEDS: NS 0.9% 1000 ml BAG 1,000 ML IV SCH (15:24)
[2024-08-03 07:09] LABS: ABS Eosinophils 0.2 10^3/uL (0.0-0.5); ABS Lymphocytes 1.7 10^3/uL (1.0-4.8); ABS Monocytes 0.5 10^3/uL (0.0-0.9); ABS Neutrophils 3.1 10^3/uL (1.5-7.6); Eosinophil % 3.2 %; Hematocrit 32.7 % (35-45); Hemoglobin 10.6 g/dL (11.5-14.3); Mean Corpuscular Hemoglobin 27.1 pg (27-33); Mean Corpuscular Hgb Conc 32.3 g/dL (31-36); Mean Corpuscular Volume 83.8 fL (80-97); Mean Platelet Volume 8.6 fL (7.5-11.2); Platelet Count 289 10^3/uL (150-450); Red Blood Count 3.89 10^6/uL (3.63-4.92); Red Cell Distribution Width 16.7 % (12-17); White Blood Count 5.5 10^3/uL (3.8-11.8)
[2024-08-03 07:26] LABS: Albumin 3.9 g/dL (3.2-5.2); Albumin/Globulin Ratio 1.3 (1-3); Calcium 9.2 mg/dL (8.6-10.3); Creatinine, Serum 1.79 mg/dL (0.51-0.95); Globulin 2.9 g/dL (2-4); Magnesium 1.6 mg/dL (1.9-2.7); Potassium 4.7 mmol/L (3.5-5.0); Total Bilirubin 0.3 mg/dL (0.2-1.0); Total Protein 6.8 g/dL (6.4-8.9); eGFR CKD-EPI 31.5 (>60)
[2024-08-03] MEDS: Magnesium Sulfate 2 gm BAG 2 GM/50 ML BAG IVPB ONE (09:36)
[2024-08-03] MEDS: Diphenoxylat/Atrop 2.5-0.025mg TAB PO SCH (09:39)
[2024-08-03] MEDS: Influenza Vaccine *TRI* 2024-25* 0.5 ML SYRINGE IM ONE (12:32)
[2024-08-03] MEDS: Lidocaine PATCH 5% PATCH TRANSDERM SCH (15:09)
[2024-08-04 06:31] LABS: Calcium 8.5 mg/dL (8.6-10.3); Creatinine, Serum 1.09 mg/dL (0.51-0.95); Magnesium 1.5 mg/dL (1.9-2.7); Potassium 3.5 mmol/L (3.5-5.0); eGFR CKD-EPI 57.1 (>60)
[2024-08-04] MEDS: Lactated Ringers 1000 ml BAG 1,000 ML IV SCH (08:22)
[2024-08-04] MEDS: Magnesium Sulfate 2 gm BAG 2 GM/50 ML BAG IVPB ONE (08:22)
[2024-08-04] MEDS: Magnesium Sulfate IV 1GM/100ML 1 GM/100 ML BAG IV ONE (12:22)
[2024-08-05 07:45] LABS: Calcium 8.7 mg/dL (8.6-10.3); Creatinine, Serum 0.9 mg/dL (0.51-0.95); Magnesium 1.6 mg/dL (1.9-2.7); eGFR CKD-EPI 71.8 (>60)
[2024-08-05 08:01] LABS: TSH Ultra Thyroid Stim Horm 0.22 mcIU/mL (0.34-5.60)
[2024-08-05 08:02] LABS: Free T3 2.8 pg/mL (2.5-3.9)
[2024-08-05 08:03] LABS: Free T4 1.32 ng/dL (0.61-1.12)
[2024-08-05] MEDS: Magnesium Sulfate 2 gm BAG 2 GM/50 ML BAG IVPB ONE (11:18)
[2024-08-05] MEDS: Magnesium Sulfate IV 1GM/100ML 1 GM/100 ML BAG IV ONE (12:31)
[2024-08-05 14:15] VITALS: BP 126/62
[2024-08-14 14:55] LABS: ALP Liver 1 135.2 IU/L (16.2-70.2); ALP Liver 1% 47.1 % (27.8-76.3); ALP Liver 2 106.8 IU/L (0.0-5.8); ALP Liver 2% 37.2 % (0.0-8.0); ALP Placental Not Present; Alkaline Phosphate 287 U/L (35 - 104)
== END 2024-08-05 15:30 | disposition home health service (06) | DRG 469 ==
LOC: ED 20:38 → EDHOLD 08-02 08:25 → SUATTDRO 08-02 08:25 → MED 08-02 12:04
PROVIDERS: ADMIT Internal Medicine; ATTEND Student in an Organized Health Care Education/Training Program